=== PATIENT | female | born 1990 | race Caucasian/White ===

== ENCOUNTER 2016-10-06 19:59 | Emergency (ER) | payer OTHER | END 2016-10-07 00:18 | disposition home or self-care (01) | LOC: ER 19:59 | DX: S33.5XXA Sprain of ligaments of lumbar spine, initial encounter (principal); R51 Headache; V43.62XA Car passenger injured in collision with other type car in traffic accident, initial encounter; Y92.413 State road as the place of occurrence of the external cause; Z79.899 Other long term (current) drug therapy | CPT/HCPCS: 72100; 96372; 99283-25 ==